=== PATIENT | female | born 1945 | race Caucasian/White ===

== ENCOUNTER → 2016-09-15 | Outpatient (CLI) | payer MEDICARE ==
[~2016-09-15] MED LIST: ANTACID ULTRA1000 M1 PO; ASPIRIN 81MG TA81 MG PO; CALCIUM ANTACI500 MG PO; ESTRADIOL1 MG PO; GLIMEPIRIDE 2MG2 MG PO; LIPITOR40 MG PO; LOSARTAN POTAS100 MG PO; LOSARTAN POTASS1 TAB PO; MELOXICAM15 MG PO; METFORMIN1000 MG PO; NOVOLIN 70/30 710 ML SC; ONGLYZA5 MG PO; PANTOPRAZOLE SO40 MG PO
--- NOTE | 2016-09-21 16:30 | RADIOLOGY REPORT PS360 ---
. DIG MAMM-SCREEN EL W/CAD CAD Screening ORDERING PHYSICIAN : Real Cedeno MD PATIENT AGE: 71 years GENDER: Female COMPARISON: Previous mammograms: Left mammogram October 2014, bilateral mammogram May 2015, May 2014, 2012 INDICATION: Routine screening takes estrogen 71-year-old. Previous excisional biopsy bilateral. Removal of lipomatous mass right axillary region 2016. .With breast cancer age 43 TECHNIQUE: Standard CC and MLO images were obtained. R2 CAD reviewed. FINDINGS: Mild/moderate scattered fibroglandular elements bilaterally. Prior ultrasounds have demonstrated cysts on the left breast RIGHT BREAST: Been no significant new findings. Postsurgical changes right axillary region apparently for benign lipomatous mass August 2015 LEFT BREAST: There is a nodular density medial left breast which is similar to studies from 2015. No interval change since 2014. This seems to come and gone over series of images in this most likely member cyst is There is also small area of nodular density at the lateral left breast which is been present since 2012. Can be followed. Some these nodular density on MLO view back to 2011 and can be followed Would encourage bilateral follow-up in one year in this patient. IMPRESSION: No significant new findings. Stable areas of nodularity on left is similar to studies dating back to 2013 System been identified here previous in the left breast. Bilateral follow-up in one year be important for ongoing evaluation. BI-RADS CATEGORY: 2_Benign RECOMMENDED FOLLOWUP: 12M 12 MONTH FOLLOW-UP (A letter has been sent to the patient regarding results of the study.)
== END ==
LOC: RAD 10:42
DX: Z12.31 Encounter for screening mammogram for malignant neoplasm of breast (principal)
CPT/HCPCS: G0202